=== PATIENT | male | born 1945 | race Caucasian/White ===

== ENCOUNTER 2016-12-01 18:54 | Emergency (ER) | payer SELFPAY ==
[~2016-12-01] VITALS: Ht 175.3 cm; Wt 95.0 kg
[~2016-12-01 18:54] MED LIST: ENAL5TAB98 PO; PRIL20TA2 PO
[2016-12-01 18:56] VITALS: BP 172/104; PULSE 112; RESP 20; TEMP 98.8; O2SAT 94
== END 2016-12-01 19:43 | disposition left against medical advice (07) ==
LOC: NED 18:54 → NEPB 19:43
DX: R68.89 Other general symptoms and signs (principal)
CPT/HCPCS: 99281